=== PATIENT | male | born 2000 | race Caucasian/White ===

== ENCOUNTER 2019-07-18 08:18 | Emergency (ER) | payer OTHER ==
[~2019-07-18] VITALS: Ht 185.4 cm; Wt 104.5 kg
[~2019-07-18 08:18] MED LIST: ALIGN4 MG PO; CLEOCIN HCL300 MG PO; HYDROCODONE-APA1 TAB PO; VIBRAMYCIN 100100 MG PO; VOLTAREN75 MG PO
[2019-07-18] MEDS ORDERED: ZOLOFT50 MG PO (08:25)
[2019-07-18 09:29] LABS: BILIRUBIN NEGATIVE (NEGATIVE); GLUCOSE NEGATIVE (NEGATIVE); KETONE NEGATIVE (NEGATIVE); NITRITE NEGATIVE (NEGATIVE); SPECIFIC GRAVITY 1.025 (1.005-1.020); UROBILINOGEN NORMAL (NORMAL)
[2019-07-18 09:37] LABS: UDS - AMPHET POSITIVE QUAL (NEGATIVE); UDS - BARB NEGATIVE QUAL (NEGATIVE); UDS - BENZO POSITIVE QUAL (NEGATIVE); UDS - COCAINE POSITIVE QUAL (NEGATIVE); UDS - OPIATE NEGATIVE QUAL (NEGATIVE); UDS - PCP NEGATIVE QUAL (NEGATIVE); UDS - THC POSITIVE QUAL (NEGATIVE)
[2019-07-18] MEDS ORDERED: IBUPROFEN800 MG PO (09:53)
[2019-07-18 09:55] LABS: BASOPHILS 0.2 % (0-2); EOSINOPHILS 1.4 % (0-7); HEMATOCRIT 45.5 % (42.0-54.0); HEMOGLOBIN 15.1 g/dL (13.5-17.5); IMMATURE GRANULOCYTES 0.1 % (0-5); LYMPHOCYTES 15.9 % (15-50); MCH 30.6 pg (26.0-34.0); MCHC 33.2 g/dL (31.0-37.0); MCV 92.3 fL (80.0-100.0); MEAN PLATELET VOLUME 10.7 fL (7.4-10.4); MONOCYTES 9.6 % (2-11); NEUTROPHILS 72.8 % (40-80); RBC 4.93 10x6/uL (4.20-6.10); RDW 13.2 % (11.5-14.5); WBC 9.3 10x3/uL (4.8-10.8)
[2019-07-18 09:57] LABS: PLATELET COUNT 172 10x3/uL (130-400)
[2019-07-18 10:01] LABS: CALC OSMOLALITY 284 mosm/kg (275-300); CALCIUM 8.6 mg/dL (8.5-10.1); CARBON DIOXIDE 28.8 mmol/L (21.0-32.0); CHLORIDE - SERUM 105 mmol/L (98-107); CREATININE - SERUM 1.1 mg/dL (0.6-1.3); GLUCOSE 97 mg/dL (74-106); POTASSIUM - SERUM 3.8 mmol/L (3.5-5.1); SODIUM 143 mmol/L (136-145); UREA NITROGEN 12 mg/dL (7-18); eGFR NON AFRICAN AMERICAN 90 mL/min (90-120)
[2019-07-18 10:07] LABS: ALBUMIN 4.2 g/dL (3.4-5.0); ALKALINE PHOSPHATASE 80 U/L (30-120); ALT (SGPT) 28 U/L (10-68); BILIRUBIN - TOTAL 0.39 mg/dL (0.2-1.3); PROTEIN - SERUM 7.6 g/dL (6.4-8.2)
[2019-07-18] MEDS ORDERED: VYVANSE40 MG PO (11:59)
[2019-07-18] MEDS ORDERED: KLONOPIN1 MG PO (12:00)
== END 2019-07-18 13:05 | disposition home or self-care (01) ==
LOC: D.ER 08:18
PROVIDERS: Emergency Medicine
DX: S16.1XXA Strain of muscle, fascia and tendon at neck level, initial encounter (principal); R04.0 Epistaxis; S06.0X0A Concussion without loss of consciousness, initial encounter; S00.83XA Contusion of other part of head, initial encounter; S80.02XA Contusion of left knee, initial encounter; S76.111A Strain of right quadriceps muscle, fascia and tendon, initial encounter; V89.0XXA Person injured in unspecified motor-vehicle accident, nontraffic, initial encounter; Y93.9 Activity, unspecified; Y92.9 Unspecified place or not applicable; M54.5 Low back pain; F14.10 Cocaine abuse, uncomplicated